=== PATIENT | female | born 1990 | race Caucasian/White ===

== ENCOUNTER 2021-01-16 10:52 | Outpatient (CLI) | payer BC, SELFPAY ==
[2021-01-16 11:44] LABS: Basophils Percent Auto 0.3 % (0.2-1.2); Eosinophils Absolute Auto 0.1 K/mm3 (0-0.3); Eosinophils Percent Auto 0.9 % (0-4.4); Hematocrit 42.6 % (37.0-47.0); Hemoglobin 14.1 g/dL (12.0-15.0); Immature Granulocyte Absolute 0.04 K/mm3 (0.00-0.031); Immature Granulocyte Percent A 0.4 % (0-0.5); Lymphocytes Absolute Auto 1.85 K/mm3 (0.9-3.2); Mean Corpuscular HGB Conc 33.1 g/dl (32-36); Mean Corpuscular Hemoglobin 30.9 pg (26-34); Mean Corpuscular Volume 93.2 fl (80-100); Monocytes Absolute Auto 0.6 K/mm3 (0.1-0.6); Monocytes Percent Auto 5.7 % (2.6-8.5); Neutrophils Absolute Auto 7.2 K/mm3 (1.3-6.7); Neutrophils Percent Auto 73.7 % (45.5-73.1); Platelet Count Result 325 k/mm3 (150-375); Red Blood Count 4.57 M/mm3 (4.2-5.4); Red Cell Distribution Width 11.9 % (11.5-14.5); White Blood Count 9.7 K/mm3 (4.5-10.0)
[2021-01-16 11:57] LABS: Alanine Aminotransferase 8 U/L (4-35); Albumin Level 4.8 g/dL (3.5-5.1); Alkaline Phosphatase 82 U/L (38-126); Anion Gap 9 mmol/L (8-16); Aspartate Amino Transferase 21 U/L (14-36); Bilirubin,Total 0.5 mg/dL (0.2-1.3); Blood Urea Nitrogen 12 mg/dL (7-17); Calcium 9.8 mg/dL (8.4-10.2); Carbon Dioxide 26 mmol/L (22-30); Chloride 104 mmol/L (98-107); Cholesterol 176 mg/dL (0-200); Estimated Glomerular Filt Rate > 60; Glucose 102 mg/dL (65-110); HDL Direct 40 mg/dL; Potassium 4.5 mmol/L (3.4-5.0); Sodium 139 mmol/L (137-145); Triglycerides 56 mg/dL (<150)
[2021-01-16 12:44] LABS: LDL Cholesterol Direct 101 mg/dL
[2021-01-19 06:19] LABS: FSH 5.9 mIU/mL (***); LH 5.7 mIU/mL (***); Progesterone <0.2 ng/mL (***)
[2021-01-21 05:17] LABS: Insulin Level Total 8.3 uIU/mL (<=19.6)
[2021-01-23 16:42] LABS: Estrogen 241.2 pg/mL
== END 2021-01-16 10:53 | disposition home or self-care (01) ==
PROVIDERS: PCP Family Medicine; Visit Provider Nurse Practitioner Family
DX: R63.5 Abnormal weight gain (principal); Z13.220 Encounter for screening for lipoid disorders
CPT/HCPCS: 36415; 80053; 80061; 82672; 83001; 83002; 83525; 84144; 84443; 85025

== ENCOUNTER 2024-08-25 12:51 | Outpatient (CLI) | payer BC, SELFPAY ==
--- OUTSIDE RECORDS SUMMARY | 2024-08-25 12:56 | XMS_ITS | Clinical Summary ---
Author Organization [facility] Address [address] [place] [address] Phone Care Team Providers Care Artificial Stone Setter Name Role Phone Pierre Chen MD Primary Care Provider [phone] Allergies No known active allergies Medications ondansetron (ZOFRAN) 4 MG Tablet Take 1-2 Tablets by mouth every 8 hours as needed for Nausea - 1st line. 10 Tablet 06/14/2023 Active dicyclomine (BENTYL) 20 MG Tablet Take 1 Tablet by mouth every 6 hours. 30 Tablet 06/14/2023 Active Immunizations Immunization Administration Dates Next Due Human Papillomavirus Vaccine (HPV), quadrivalent 11/02/2023 Social History Tobacco Use Types Packs/Day Years Used Date Smoking Tobacco: Never Assessed Comments No Sex and Gender Information Value Date Recorded Sex Assigned at Not on file Legal Sex Female 1:21 PM MEDICAL LABORATORY TECHNICAL OFFICER Gender Identity Not on file Sexual Orientation Not on file Last Filed Vital Signs Vital Sign Reading Time Taken Comments Blood Pressure 118/74 06/14/2023 5:30 PM MEDICAL LABORATORY TECHNICAL OFFICER Pulse 88 06/14/2023 5:30 PM MEDICAL LABORATORY TECHNICAL OFFICER Temperature 36.2 C (97.1 F) 06/14/2023 1:32 PM MEDICAL LABORATORY TECHNICAL OFFICER Respiratory Rate 16 06/14/2023 5:30 PM MEDICAL LABORATORY TECHNICAL OFFICER Oxygen Saturation 98% 06/14/2023 5:30 PM MEDICAL LABORATORY TECHNICAL OFFICER Inhaled Oxygen Concentration - - Weight 72.6 kg (160 lb) 06/14/2023 1:32 PM MEDICAL LABORATORY TECHNICAL OFFICER Height 165.1 cm (5' 5 ) 06/14/2023 1:32 PM MEDICAL LABORATORY TECHNICAL OFFICER Body Mass Index 26.63 06/14/2023 1:32 PM MEDICAL LABORATORY TECHNICAL OFFICER Plan of Treatment Health Maintenance Due Date Last Done Comments Hepatitis C Virus (HCV) Screening 1992 TdaP Immunization 1992 Pap Smear 2013 Cervical Cancer Screening (CCS) 2022 HPV/Cotest 2022 Influenza Immunization (#1) 2024 02/02/2015, 0 01/28/2014 SARS-COV-2 Immunization ( season) 2024 06/03/2021, 05/11/2021 Respiratory Syncytial Virus (RSV) Immunization (Adult) (1 - 1-dose 75+ series) 11/29/2067 DTaP/Tdap/Td Immunization Discontinued 1993, 08/31/1993, 05/13/1993, Additional history exists Hepatitis B Immunization Completed 995, 01/07/1993, 1992 Meningococcal Immunization (ACWY) Aged Out No longer eligible based on patient's age to complete this topic Pneumococcal Immunization Combined Aged Out No longer eligible based on patient's age to complete this topic Rotavirus Immunization Aged Out No lo nger eligible based on patient's age to complete this topic Insurance Care Teams Artificial Stone Setter Relationship Specialty Start Date End Date Pierre Chen MD [address] [place] [address] PCP - General Family Medicine 06/14/23
--- OUTSIDE RECORDS SUMMARY | 2024-08-25 12:56 | XMS_ITS | Clinical Summary ---
Author Organization [facility] Address [address] [place] [address] Care Team Providers Care Pressurizer Name Role Phone Karime Kt Guy Primary Care Provider Source Comments [facility],non-owned Affiliates and Associated Physician Practices is amultiple site organization consisting of ambulatory clinics and hospital sitesin [place], [place], [place] and [place]. This disclosure is being madepursuant to the Care Everywhere program and may not contain all information available regarding this patient. Last updated 18.[facility] Allergies No known active allergies Medications * Be aware that medications may not be up to date on this document. Alwaysverify current medications with the patient. medroxyPROGESTERon e Acetate (DEPO-PROVERA IM) Ac tive SUMAtriptan Succinate (IMITREX PO) Active ALPRAZolam (XANAX PO) Active Social History Tobacco Use Types Packs/Day Years Used Date Smoking Tobacco: Never Smokeless Tobacco: Never Tobacco Cessation:Counseling Given: Yes Comments No Sex and Gender Information Value Date Recorded Sex Assigned at Not on file Legal Sex Female 11:52 AM CDT Gender Identity Not on file Sexual Orientation Not on file Last Filed Vital Signs Vital Sign Reading Time Taken Comments Blood Pressure 124/66 07/05/2019 3:24 PM PLANT PRODUCTION WORKER Pulse 98 07/05/2019 3:24 PM PLANT PRODUCTION WORKER Temperature 36.8 C (98.3 F) 07/05/2019 3:24 PM PLANT PRODUCTION WORKER Respiratory Rate 16 07/05/2019 3:24 PM PLANT PRODUCTION WORKER Oxygen Saturation 99% 07/05/2019 3:24 PM PLANT PRODUCTION WORKER Inhaled Oxygen Concentration - - Weight 72.6 kg (160 lb) 07/05/2019 3:24 PM PLANT PRODUCTION WORKER Height 165.1 cm (5' 5 ) 07/05/2019 3:24 PM PLANT PRODUCTION WORKER Body Mass Index 26.63 07/05/2019 3:24 PM PLANT PRODUCTION WORKER Plan of Treatment Health Maintenance Due Date Last Done Comments HIV SCREENING 11/29/2007 HEPATITIS C SCREENING 11/24/2010 DTAP/TDAP/TD VACCINES (1 - Tdap) 11/29/2011 HEPATITIS B VACCINE (1 of 3 - 19+ 3-dose series) 11/29/2011 COVID-19 VACCINE (1 - 2023-2 5 season) 2024 DEPRESSION SCREENING 05/03/2024 INFLUENZA VACCINE (Season Ended) 2025 ZOSTER VACCINE (1 of 2) 2042 HIB VACCINE Aged Out No longer eligi ble based on patient's age to complete this topic HPV VACCINE Aged Out No longer eligi ble based on patient's age to complete this topic MENINGOCOCCAL (Group B) VACC INE SHARED DECISION-MAKING Aged Out No longer eligibl e based on patient's age to complete this topic MENINGOCOCCAL GROUPS A/C/Y/W VACCINE Aged Out No longer eligible b ased on patient's age to complete this topic PNEUMOCOCCAL VACCINE Aged Out No long er eligible based on patient's age to complete this topic Insurance ANTH Care Teams Pressurizer Relationship Specialty Start Date End Date Kt Schaffer [address] [place] [address] PCP - General 07/05/19
--- OUTSIDE RECORDS SUMMARY | 2024-08-25 12:56 | XMS_ITS | Clinical Summary ---
Author Organization [facility] Address [address] [place] [address] Care Team Providers Care Production Estimator Name Role Phone Unavailable Primary Care Provider Unavailabl e Encounters Date Type Department Care Team Description 08/01/2024 External Device Data [facility] ABSTRACTION Provider, Abstract 07/08/2024 External Device Data [facility] ABSTRACTION Provider, Abstract 07/07/2024 External Device Data [facility] ABSTRACTION Provider, Abstract 07/05/2024 External Device Data [facility] ABSTRACTION Provider, Abstract 06/21/2024 External Device Data [facility] ABSTRACTION Provider, Abstract 05/31/2024 External Device Data [facility] ABSTRACTION Provider, Abstract from Last 3 Months Social History Tobacco Use Types Packs/Day Years Used Date Smoking Tobacco: Never Assessed Comments Unknown Sex and Gender Information Value Date Recorded Sex Assigned at Not on file Legal Sex Female 1:47 PM SOFTWARE SYSTEMS 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
== END 2024-08-25 12:52 | disposition home or self-care (01) ==
PROVIDERS: PCP Family Medicine; Visit Provider Otolaryngology Otolaryngology/Facial Plastic Surgery
DX: H93.11 Tinnitus, right ear (principal)
CPT/HCPCS: 92557; 92567

== ENCOUNTER 2024-09-22 09:14 | Outpatient (CLI) | payer BC, SELFPAY ==
--- NOTE | ~2024-09-22 | CT_ITS ---
CTA brain carotid Ordering provider: Nikolas Escalera MD History: . H93.11 - Tinnitus, right ear . Comparison: None. Technique: CT angiogram head and neck was performed following timed intravenous injection of contrast . Thin slice axial images and reformatted coronal images were obtained. Three dimensional reformatted images of the brain were also obtained using a [employer] workstation. DLP: 1716 mGy-cm FINDINGS: HEAD: --ANTERIOR AND MIDDLE CEREBRAL ARTERIES AND BRANCHES: Normal caliber and contour. --INTRACRANIAL INTERNAL CAROTID ARTERIES: Normal caliber and contour. --BASILAR ARTERY AND BRANCHES: Normal caliber and contour. No atheromatous disease. --POSTERIOR CEREBRAL ARTERIES: Normal caliber and contour --POSTERIOR COMMUNICATING ARTERIES: Not well visualized likely related to congenital absence or small size. --ANEURYSM: None visualized. --BRAIN: The ventricles are normal in size, shape and position. There is no mass, mass effect or midline shift. There is no abnormal extra-axial fluid collection or intracranial hemorrhage. Visualized paranasal sinuses are clear. The mastoid air cells are well aerated. No acute displaced fractures within the overlying cranium. NECK: --RIGHT CERVICAL CAROTID SYSTEM: Normal caliber and contour. Percent stenosis per NASCET criteria is 0% No carotid dissection. No stenosis of the cervical carotid system. --LEFT CERVICAL CAROTID SYSTEM: Normal caliber and contour. Percent stenosis per NASCET criteria is No carotid dissection. No stenosis of the cervical carotid system. --VERTEBRAL ARTERIES: Normal caliber and contour. --VISUALIZED AORTIC ARCH AND BRANCHING VESSELS: Normal caliber and contour. No significant atheromato us disease. --SOFT TISSUES: Unremarkable --CERVICAL SPINE: No significant degenerative disease. IMPRESSION: 1. Normal CTA head and neck. Percent stenosis per NASCET criteria is 0% Reviewed, dictated and finalized at location A.
--- OUTSIDE RECORDS SUMMARY | 2024-09-22 09:18 | XMS_ITS | Clinical Summary ---
Author Organization [facility] Address [address] [place] [address] Care Team Providers Care Cyber Threat Analyst Name Role Phone Karime Kt Guy Primary Care Provider Source Comments [facility],non-owned Affiliates and Associated Physician Practices is amultiple site organization consisting of ambulatory clinics and hospital sitesin [place], [place], [place] and [place]. This disclosure is being madepursuant to the Care Everywhere program and may not contain all information available regarding this patient. Last updated 18.[facility] Allergies No known active allergies Medications * [...] Comments Blood Pressure 124/66 07/05/2019 3:24 PM CAR PACKER Pulse 98 07/05/2019 3:24 PM CAR PACKER Temperature 36.8 C (98.3 F) 07/05/2019 3:24 PM CAR PACKER Respiratory Rate 16 07/05/2019 3:24 PM CAR PACKER Oxygen Saturation 99% 07/05/2019 3:24 PM CAR PACKER Inhaled Oxygen Concentration - - Weight 72.6 kg (160 lb) 07/05/2019 3:24 PM CAR PACKER Height 165.1 cm (5' 5 ) 07/05/2019 3:24 PM CAR PACKER Body Mass Index 26.63 07/05/2019 3:24 PM CAR PACKER Plan of Treatment Health Maintenance Due Date [...] complete this topic Insurance ANTH Care Teams Cyber Threat Analyst Relationship Specialty Start Date End Date Kt Schaffer [place] [place] [address] PCP - General 07/05/19
--- OUTSIDE RECORDS SUMMARY | 2024-09-22 09:18 | XMS_ITS | Clinical Summary ---
Author Organization [facility] Address [address] [place] [address] Care Team Providers Care Underground Conduit Installer Name Role Phone Unavailable Primary Care Provider [...] on file Legal Sex Female 1:47 PM PIE CHEF Gender Identity Not on file Sexual Orientation Not on file Plan of Treatment Health Maintenance Due Date Last Done Comments DTAP/TDAP/TD VACCINES (1 - Tdap) 11/29/2011 HEPATITIS B VACCINES (1 of 3 - 19+ 3-dose series) 11/01 HPV/Cotest (21-29) 2013 CERVICAL CANCER SCREENING 2022 HPV/Cotest (30-65) 2022 PAP SMEAR 2022 HPV VACCINES (2 - 3-dose SCDM series) 11/30/202306/2023 INFLUENZA VACCINE (#1) 2023 Insurance [facility]
--- OUTSIDE RECORDS SUMMARY | 2024-09-22 09:18 | XMS_ITS | Clinical Summary ---
Author Organization [facility] Address [address] [place] [address] Phone Care Team Providers Care Managing Editor Name Role Phone Pierre Chen MD Primary Care Provider [phone] Allergies No known active allergies Medications ondansetron [...] on file Legal Sex Female 1:21 PM BUSINESS PROCESS ENGINEER Gender Identity Not on file Sexual Orientation Not on file Last Filed Vital Signs Vital Sign Reading Time Taken Comments Blood Pressure 118/74 06/14/2023 5:30 PM BUSINESS PROCESS ENGINEER Pulse 88 06/14/2023 5:30 PM BUSINESS PROCESS ENGINEER Temperature 36.2 C (97.1 F) 06/14/2023 1:32 PM BUSINESS PROCESS ENGINEER Respiratory Rate 16 06/14/2023 5:30 PM BUSINESS PROCESS ENGINEER Oxygen Saturation 98% 06/14/2023 5:30 PM BUSINESS PROCESS ENGINEER Inhaled Oxygen Concentration - - Weight 72.6 kg (160 lb) 06/14/2023 1:32 PM BUSINESS PROCESS ENGINEER Height 165.1 cm (5' 5 ) 06/14/2023 1:32 PM BUSINESS PROCESS ENGINEER Body Mass Index 26.63 06/14/2023 1:32 PM BUSINESS PROCESS ENGINEER Plan of Treatment Health Maintenance Due Date [...] to complete this topic Insurance Care Teams Managing Editor Relationship Specialty Start Date End Date Pierre Chen MD [address] [address] PCP - General Family Medicine 06/14/23
--- OUTSIDE RECORDS SUMMARY | 2024-09-22 09:19 | XMS_ITS | Data Portability ---
Author Organization [place] - [facility] [employer], Main Office Address [address] [place] [address] Care Team Providers Care Payroll Lead Name Role Phone WILLOW DOWELL Primary Care Provider WILLOW DOWELL Referring Provider Assessment Encounter Date Assessment Date Assessment LastModified by Organization Details LastModified Time 09/21/2023 09/21/2023 The patient has a closed acute traumatic nondisplaced fracture through the distal radius right wrist. Today we talked about treatment options I have recommended short arm casting for protection we will do this for about a month, today I applied a short-arm cast to the right upper extremity she tolerated the procedure well. Follow her with serial x-rays. I will see her back in 2 weeks for new x-rays. Today we talked about cast care in detail she is to avoid getting it wet use elevation when necessary for swelling control she has not to do anything heavy repetitive. 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 We will give her a note for work today. We will see her back in 2 weeks if she has any problems before then she is instructed to call she voiced understanding agrees above plan she will call for any further problems difficulties or questions. We talked about the fact that she can use her fingers to do light things in terms of feeding or dressing herself and work on gentle range of motion of her fingers to help with range of motion swelling control. Not available 09/21/2023 15:19:43 10/05/2023 10/05/2023 The patient has a nondisplaced fracture of the right distal radius now a little over 2 weeks out status post injury. patient is doing well her cast is intact clean and dry we will continue with casting for 2 more weeks when she returns in 2 weeks we will remove the cast take new x-rays and likely convert her to a cock-up wrist brace for support. 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 She voiced understanding agrees above plan she will continue with off work status call for any further problems difficulties or questions. Not available 10/05/2023 15:04:34 10/19/2023 10/19/2023 The patient has a healing nondisplaced fracture through the distal end of the right radius. Today's x-rays show new callus formation everything looks good. The cast was removed x-rays show clear healing. Today she was placed in a cock-up wrist brace that she was given in the emergency room she brought with her today it was molded and fitted to her best comfort and support by me in the office. I will see her back in 2 weeks for her next x-rays she is going to continue to stay out of work she can remove the splint a couple of times a day to work on some gentle strengthening with a stress ball also work on some gentle range of motion to try to get the stiffness worked out. 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 The patient voiced understanding agrees above plan she can start to do a little light things with the wrist as long as she has comfortable around the house. She call for any further problems difficulties or questions. Not available 10/19/2023 15:39:49 11/02/2023 11/02/2023 The patient has a healing fracture of the distal radius left wrist today's x-rays show significant callus formation and overall alignment is anatomic. At this point she can get out of the cock-up wrist brace start working on more regular daily activities light things like folding laundry washing dishes general daily activities etc. would be good therapy. She declined formal therapy I do not think she really needs it. She is doing quite well making good progress with her range of motion and comfort level. Will see her back again in 2 weeks to recheck her progress at that point we may be able to get her back to work soon we will see how she is doing. She voiced understanding and agrees with the above plan she will call for any further problems difficulties or questions. We did talk about using a 1-2 lb light weight work on some gentle strengthening as well as a stress ball. Not available 11/02/2023 16:15:35 11/16/2023 11/16/2023 The patient has a healed fracture of the distal radius right wrist. She is going to continue to work on strengthening she thinks she is ready to return to work full duty next Wednesday. That will give her another 6 days she is basically back to doing most activities. I think she can be dismissed she will follow up as needed she voiced understanding agrees above plan she will call for any further problems difficulties or questions. Not available 11/16/2023 14:15:26 Plan of Treatment Reminders Order Date Submit Date Provider Last Modified By Organization Details Last Modified Time Details Appointments None recorde d. Lab None recorde d. Referral None recorde d. Procedures None recorde d. Surgeries None recorde d. Imaging XR, wrist, 3 or more view 024 11/16/19 24 [facility] [place], [address], [place], [address], 4 15:35:14 XR, wrist 024 11/02/19 24 [facility] [place], [address], [place], [address], 4 16:53:45 XR, wrist 024 10/19/19 24 [facility] [place], [address], [place], [address], 4 16:15:20 XR, wrist 024 10/05/19 24 [facility] [place], [address], [place], [address], 16:14:14 Medication Orders None recorde d. Patient TargetsNo targets recorded. Patient InstructionsNo instructions recorded. Reason for Referral None Reported. Results Created Date Observation Date Name Description Value Unit Range Abnormal Flag Note LastModifiedBy Organization Detail LastModifiedTime 09/21/19 24 09/19/2023 XR, wrist , 3 or more view No observ ation record ed. [email or web address] Not Available 09/01 10:22:58 09/21/19 24 09/19/2023 XR, hand, 3 or more view No observ ation record ed. [email or web address] Not Available 09/01 10:22:58 10/05/19 24 XR, wrist No observ ation record ed. [facility] [place] [address] [address], [place], [address], 10/05/2023 15:05:59 10/19/19 24 XR, wrist No observ ation record ed. [facility] [place] [address] [address], [place], [address], 10/19/2023 15:40:29 11/02/19 24 XR, wrist No observ ation record ed. [facility] [place] [address] [facility] [address], [place], [address], 11/02/2023 16:17:40 11/16/19 24 XR, wrist , 3 or more view No observ ation record ed. [facility] [place] [address] [facility] [address], [place], [address], 11/16/2023 14:16:02 Result Notes None recorded. Problems Name Problem SNOMED Code Status Onset Date Resolution Date Notes Provider Name and Address Organization Details Recorded Time Pain in right hand 855007460780354 Active 2023 ANA Gaspar, [place] - [facility] [facility] 4 14:42:27 Pain of right wrist 784539258243491 Active 2023 ANA Gaspar, [place] - [facility] [employer] [facility] 4 14:42:39 Closed fracture of distal end of right radius 284631651814369 05 Active [address] JOHN [address] [facility], [address], [place], [address] [place] [address] - [facility] [employer] [facility] 4 15:19:52 Problem Notes None recorded. Procedures Surgical History Date Name Laterality Status Provider Name and Address Organization Details Recorded Time Sterling Teeth completed Sussy Mcguire [facility]NA [employer] [facility] [employer] [facility] 09/21/2023 14:41:50 Imaging Results Imaging Date Name Status LastModified by Organiz ation Details LastModified Time 09/19/2023 XR, wrist, 3 or more view completed Information not available 09/21/2023 10:22:58 09/19/2023 XR, hand, 3 or more view completed Information not available 09/21/2023 10:22:58 10/05/2023 XR, wrist completed [facility] [place] [address] [facility] [address], [place], [address], 10/05/2023 15:05:59 10/19/2023 XR, wrist completed [facility] [place] [address] [facility] [address], [place], [address], 10/19/2023 15:40:29 11/02/2023 XR, wrist completed [facility] [place] [address] [facility] [address], [place], [address], 11/02/2023 16:17:40 11/16/2023 XR, wrist, 3 or more view completed [facility] [place] [address] [facility] [address], [place], [address], 11/16/2023 14:16:02 Procedure Notes None recorded. Medical Equipment None Reported. Allergies No known drug allergies Medications Name Sig Start Date Stop Date Status Note LastModified by Organization Details LastModified Time azithromyci n 250 mg tablet TAKE 2 TABLETS BY MOUTH TODAY, THEN TAKE 1 TABLET DAILY X 4 DAYS 09/20 completed Not Available Not Available Not Available valacyclovi r 1 gram tablet TAKE 2 TABLETS BY MOUTH 2 TIMES A DAY X 1 DAY active Not Available Not Available No t Available ondansetron HCl 4 mg tablet TAKE 1 TABLET BY MOUTH EVERY 6 HOURS NEEDED active Not Available Not Available No t Available clobetasol 0.05 % topical cream APPLY TO AFFECTED AREA TWICE A DAY 09/20 completed Not Available Not Available Not Available tramadol 50 mg tablet active Not Available Not Available No t Available methocarbam ol 750 mg tablet TAKE 1 TABLET BY MOUTH 4 TIMES A DAY NEEDED 09/20 completed Not Available Not Available Not Available dicyclomine 20 mg tablet TAKE 1 TABLET BY MOUTH EVERY 6 HOURS 09/20 completed Not Available Not Available Not Available albuterol sulfate HFA 90 mcg/actuati on aerosol inhaler INHALE 2 PUFFS BY MOUTH FOUR TIMES DAILY active Not Available Not Available No t Available medroxyprog esterone 150 mg/mL intramuscul ar suspension ADMINISTE R 1 ML IN THE MUSCLE EVERY 3 MONTHS 09/20 completed Not Available Not Available Not Available doxycycline hyclate 100 mg tablet TAKE 1 TABLET BY MOUTH EVERY DAY WITH FOOD 09/20 completed Not Available Not Available Not Available levonorgest rel 0.15 mg-ethinyl estradiol 30 mcg tablets,3 mos pack(91) TAKE 1 TABLET BY MOUTH EVERY DAY active Not Available Not Available No t Available levothyroxi ne active Not Available Not Available Not Available lisdexamfet amine 40 mg capsule TAKE 1 CAPSULE BY MOUTH EVERY DAY 09/20 completed Not Available Not Available Not Available Vitals Date Recorded Body height Body mass index (BMI) Body weight Provider Name and Address Organization Details Last Updated DateTime 09/21/2023 165.1 cm 26.6 kg/m2 00304.78 g ANA Gaspar [place] [employer] [facility] 09/21/2023 14:37:59 Date Recorded Body height Body mass index (BMI) Body weight Provider Name and Address Organization Details Last Updated DateTime 10/05/2023 165.1 cm 26.6 kg/m2 42751.78 g Sussy Mcguire [facility] [employer] [facility] 10/05/2023 14:43:31 Date Recorded Body height Body mass index (BMI) Body weight Provider Name and Address Organization Details Last Updated DateTime 10/19/2023 165.1 cm 26.6 kg/m2 77128.78 g Sussy Mcguire [facility] [employer] [facility] 10/19/2023 15:12:23 Date Recorded Body height Body mass index (BMI) Body weight Provider Name and Address Organization Details Last Updated DateTime 11/02/2023 165.1 cm 26.6 kg/m2 15660.78 g Sussy Mcguire [facility] [employer] [facility] 11/02/2023 15:35:43 Date Recorded Body height Body mass index (BMI) Body weight Provider Name and Address Organization Details Last Updated DateTime 11/16/2023 165.1 cm 26.6 kg/m2 88551.78 g Olivia Valencia [facility] [employer] [facility] 11/16/2023 13:50:21 Social History None recorded. Functional Status Question Answer Note LastModified by Organizat ion Details LastModified Time What is your level of alcohol consumption? Occasional Information not available 09/21/2023 Mental Status None recorded. Family History Relationship Description Onset Age of this Age Resolved Age Notes LastModified by Organization Details LastModified Time Father Heart disease [email or web address] Not available 2023 14:40:11 Father Hypertensive disorder [email or web address] Not available 2023 14:40:50 Mother Blood coagulation disorder [email or web address] Not available 2023 14:40:23 Mother Hypertensive disorder [email or web address] Not available 2023 14:40:50 Unspecified Relation Family history of malignant neoplasm grandp arents , unspec ified side Not available 09/21/2023 14:41:22 Medical History No medical history recorded. Gynecological HistoryNo gynecological history recorded. Obstetrics History GPAL:G 0 P 0 0 0 0 Past Encounters Encounter ID Performer Location Encounter Start Date Encounter Closed Date Diagnosis/Indication Diagnosis SNOMED-CT Code Diagnosis ICD10 Code Diagnosis Note [id number] Mario Marques MD [facility] [place] [address] [place] [address] 09/21/2023 14:10:30 09/21/2023 15:20:17 Pain of right wrist 8148729167 51729 M25.531 Closed fra cture of distal end of right radius 0673479596 5781175 S52.501A [id number] Mario Marques MD [facility] [place] [address] [place] [address] 10/05/2023 14:39:22 10/05/2023 15:43:51 Closed fracture of distal end of right radius 6957551893 4395748 S52.501D Pain of right wrist 3169 037597 61925 M25.369 [id number] Mario Marques MD [facility] [place] [address] [place] [address] 10/19/2023 15:02:26 10/19/2023 15:36:13 Closed fracture of distal end of right radius 2267592598 6235614 S52.501D Pain of right wrist 3169 880965 88010 M25.886 [id number] Mario Marques MD [facility] [place] [address] [place] [address] 11/02/2023 15:33:49 11/02/2023 16:16:28 Closed fracture of distal end of right radius 5882666431 0505429 S52.501D Pain of right wrist 3169 540723 73567 M25.335 [id number] Mario Marques MD [facility] [place] [address] [place] [address] 11/16/2023 13:47:13 11/16/2023 14:17:32 Closed fracture of distal end of right radius 1296003800 8038089 S52.501D Pain of right wrist 3169 630073 79623 M25.531 Health Concerns Section Related Observation LastModified by Organization Detai ls LastModified Time None Recorded Concern Status LastModified by Organization Details LastModified Time None Recorded Advance Directives Directive None Recorded Payers Encounter Date Sequence Insurance Name Policy Number Policy Mccullough Covered Member ID Mccullough Member ID Guarantor Name 09/21/2023 1 [employer] [id number] Roberta R Trena [id number] 68 Roberta Trena 10/05/2023 1 [employer] [id number] Roberta R Trena [id number] 68 Roberta Trena 10/19/2023 1 [employer] [id number] Roberta R Trena [id number] 68 Roberta Trena 11/02/2023 1 [employer] [id number] Roberta R Trena [id number] 68 Roberta Trena 11/16/2023 1 [employer] [id number] Roberta R Trena [id number] 68 Roberta Trena Notes Date Note Type Note Provider Name and Address Organization Details Recorded Time 09/21/2023 text/html the patient is a 32-year-old female who suffered an injury to her right wrist 3 days ago. She was rough-housing a bit with some friends when she fell landing on her wrist. She would immediate pain and swelling enough that prompted her to go to the emergency room. She had x-rays performed. Four views of the x-rays were reviewed today in detail today with the patient and I agree that she has a closed acute traumatic nondisplaced fracture through the distal radius. Joint spaces are well-maintained no other fracture lesion mass is seen. She has good sensation circulation motor function throughout the hand she is tender throughout the distal radius has limited motion because of her pain. She has been in a splint since she was discharged from the emergency room states she is otherwise feeling well. Denies any other significant trauma or injury. Comes in today for initial evaluation treatment of a right distal radius fracture as described. New past medical history sheet was reviewed and signed on intake sheet of today's date drug allergies current medications family social history previous surgical history 10 point review of systems was reviewed and discussed in detail today with the patient. The patient states her pain is about a 5 on a scale 1-10 right wrist. JOHN Simon [address], [place], [address], [employer] 09/21/2023 15:20:25 10/05/2023 text/html Patient returns for recheck of her right wrist. She has now a little over 2 weeks status post injury. She had a nondisplaced fracture through the distal radius joint spaces were well preserved the patient was comfortable no neurovascular deficits noted. She was placed in a short-arm cast 2 weeks ago. She states everything is doing well little aching discomfort at the fracture site otherwise unremarkable. Denies any problems with the cast no skin edges rashes or abrasions no neurovascular deficits. Comes in today for new x-rays in the cast. JOHN Simon [address], [place], [address], [employer] 10/05/2023 15:06:33 10/19/2023 text/html patient returns she is now 1 month status post injury to her right wrist. The patient had a nondisplaced fracture through the distal radius joint spaces were well maintained. She has been in a short-arm cast for a month x-rays show good alignment and today's x-rays show new callus formation. Today the cast was removed she has a little bit of tenderness over the distal radius some stiffness from being in the cast but overall doing well no problems with her skin no neurovascular problems. She comes in today for new x-rays and recheck. JOHN Simon [address], [address], [place], [address], [employer] 10/19/2023 15:41:08 11/02/2023 text/html patient returns for recheck of her right wrist. She had a closed acute traumatic nondisplaced fracture through the distal radius joint spaces are well-maintained no angulation or displacement was noted. She came out of the cast 2 weeks ago she was quite stiff she has been working on her range of motion. She states today she has near full range of motion has some pain with extremes of motion little bit of discomfort with trying to do normal daily activities but is making good progress. 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 She is now 6 weeks status post injury she has been wearing a cock-up wrist brace I would like her to start getting out of this and working on more general light daily activity to get her strength and mobility back. Overall she is pretty comfortable she comes in today for new x-rays and recheck. JOHN Simon [address], [place], [address], [employer] 11/02/2023 16:18:35 11/16/2023 text/html Patient returns for recheck of her right wrist she is now 2 months status post injury she had a nondisplaced transverse fracture through the distal right radius. 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 She states she thinks she is almost there she has a little discomfort with extremes of motion but otherwise doing well really no pain or tenderness just feels as though her arm and hand or a little weak she has not quite gotten 100% of her strength back it tires quickly but otherwise no significant problems she comes in today for new x-rays and recheck. JOHN Simon [address], [place], [address], [employer] 11/16/2023 14:16:25 OBGyn Episode No OBEpisode recorded.
== END 2024-09-22 09:15 | disposition home or self-care (01) ==
PROVIDERS: PCP Family Medicine; Visit Provider Otolaryngology Otolaryngology/Facial Plastic Surgery
DX: H93.11 Tinnitus, right ear (principal); H93.A1 Pulsatile tinnitus, right ear
CPT/HCPCS: 70496; 70498; Q9967

== ENCOUNTER 2024-10-12 13:54 | Outpatient (CLI) | payer BC, SELFPAY ==
--- NOTE | ~2024-10-12 | CT_ITS ---
CT IAC/mastoids BI w con Ordering provider: Nikolas Escalera MD Technique: CT temporal bones was performed by obtaining thin slice axial images. Coronal and sagittal reformatted images were also obtained. 75 mL Omnipaque 350 was given IV. Reason for exam: . H93.A1 - Pulsatile tinnitus, right ear . Comparison: None. Findings: RIGHT TEMPORAL BONE: The mastoid air cells are normal and well aerated. The external auditory canal is normal and well aerated. The tympanic membrane as visualized is intact and normal. The middle ear (including the epitympanum, mesotypanum and hypotympanum) is normal and well aerated. The tegmen tym taisha is intact. The scutum is normal. The auditory ossicles are normal. The cochlea, vestibule, ves tibular and cochlear aqueduct are normal. The semicircular canals are normal. The facial nerve king l is normal. The internal auditory canal is normal. The carotid canal and jugular foramen are norm al. The temporomandibular joint is normal. LEFT TEMPORAL BONE: The mastoid air cells are normal and well aerated. The external auditory canal is normal and well aerated. The tympanic membrane as visualized is intact and normal. The middle ear ( including the epitympanum, mesotypanum and hypotympanum) is normal and well aerated. The tegmen tympa ni is intact. The scutum is normal. The auditory ossicles are normal. The cochlea, vestibule, vest ibular and cochlear aqueduct are normal. The semicircular canals are normal. The facial nerve canal is normal. The internal auditory canal is normal. The carotid canal and jugular foramen are lindy l. The temporomandibular joint is normal. The visualized brain parenchyma, paranasal sinuses, and superficial soft tissues are normal for patie nt's age. IMPRESSION: No definite abnormality seen bilaterally. No enhancing lesions seen. Reviewed, dictated and finalized at location A.
== END 2024-10-12 13:55 | disposition home or self-care (01) ==
PROVIDERS: PCP Family Medicine; Visit Provider Otolaryngology Otolaryngology/Facial Plastic Surgery
DX: H93.A1 Pulsatile tinnitus, right ear (principal)
CPT/HCPCS: 70481; Q9967